=== PATIENT | male | born 1955 | race Caucasian/White ===

== ENCOUNTER → 2016-06-22 | Outpatient (CLI) | payer OTHER ==
[~2016-06-22] MED LIST: BP MED; CARVEDILOL12.5 MG PO; MIRALAX17 GM PO; MULTI VITAMIN1 EACH PO; OMEPRAZOLE40 M1 PO
[2016-06-22 12:22] LABS: INR 1.8; PROTHROMBIN TIME (PATIENT) 20.3 SECONDS (9.5-12.4)
== END | disposition home or self-care (01) ==
LOC: SLAB 11:36
PROVIDERS: Family Medicine
DX: Z51.81 Encounter for therapeutic drug level monitoring (principal); Z79.01 Long term (current) use of anticoagulants
CPT/HCPCS: 36415; 85610